=== PATIENT | female | born 1975 | race Caucasian/White ===

== ENCOUNTER → 2017-06-01 | Outpatient (CLI) | payer BC ==
--- NOTE | 2017-06-01 12:10 | REPMRS ---
Patient History The patient states she had a clinical breast exam in 2016. Family history of breast cancer in mother. Taking hormonal contraceptives for 1 year. Digital Mammo Screening Bilat: June 01, 2017 - Exam #: [id number] Bilateral CC and MLO view(s) were taken. Technologist: Mary Jo Ca, Technologist Prior study comparison: May 27, 2016, bilateral digital mammo screening bilat performed at [facility]. 2010, digital bilateral screening mammo, performed at [facility]. FINDINGS: There are scattered fibroglandular densities. There has been no significant change in the appearance of the mammogram from the prior studies. There is a moderate amount of residual fibroglandular tissue which is fairly symmetric, somewhat less dense than previous exams. There is no interval development of dominant mass, architectural distortion, or clustered microcalcification suggestive of malignancy. Scattered lymph nodes are seen in the axillae. No significant changes when compared with prior studies. ASSESSMENT: BI-RADS/ACR category 2 mammogram. Benign finding(s). Recommendation Routine screening mammogram in 1 year (for women over age 40). This mammogram was interpreted with the aid of an FDA-approved computer-aided dectection system. A. Negative x-ray reports should not delay biopsy if a dominant or clinically suspicious mass is present. B. Four to eight percent of cancers are not identified by mammography. C. Adenosis and dense breast may obscure an underlying neoplasm. Electronically Signed By: Reji Garsia MD 06/01/17 [id number]
== END ==
LOC: M RAD 11:21
PROVIDERS: ATTEND Nurse Practitioner Women's Health
DX: Z12.31 Encounter for screening mammogram for malignant neoplasm of breast (principal)